=== PATIENT | female | born 1950 | race Caucasian/White ===

== ENCOUNTER 2017-04-27 06:21 | Day surgery (SDC) | payer BC, MEDICAID ==
[2017-04-27] MEDS ORDERED: Lactated Ringers 1,000 ML IV SCH (07:00)
[2017-04-27] MEDS ORDERED: Midazolam 1 MG/ML 2 ML SDV ONE (07:06)
[2017-04-27] MEDS ORDERED: Propofol 200 MG/20 ML SDV ONE ×2 (07:06→08:10)
[2017-04-27] MEDS ORDERED: fentaNYL 100 MCG/2 ML SDV ONE (07:06)
[2017-04-27 09:08] VITALS: BP 138/75
--- NOTE | 2017-04-27 13:46 | OR ---
DATE OF PROCEDURE: 04/27/2017 PREOPERATIVE DIAGNOSIS: Strong family history of colon cancer, father and grandfather. POSTOPERATIVE DIAGNOSIS: Unremarkable colonoscopy. Strong family history of colon cancer, father and grandfather. PROCEDURE: Colonoscopy to the cecum. ANESTHESIA: IV anesthesia with monitored anesthesia care. INDICATION: This 66-year-old white female is referred for a colonoscopy because of strong family history of colon cancer. Both her father and grandfather had colon cancer. She says her last colonoscopic exam was done 6 years ago. I think she should be having this every five years. I counseled her for a colonoscopy with possible biopsy and/or polypectomy including risks and alternatives, and she gave her informed consent to proceed. PROCEDURE IN DETAIL: The patient was placed in the left lateral decubitus position. IV anesthesia was administered by the Anesthesia Service. Time-out was held. A rectal exam was performed, which was unremarkable. The flexible video Olympus colonoscope was introduced through her anus, up her rectum, and out her colon all the way to the cecum. Once the cecum was reached, the scope was slowly withdrawn examining the mucosa throughout. No mucosal abnormalities were noted. The scope was retroflexed in the rectum with the distal rectum appearing unremarkable. The scope was straightened and removed. She tolerated the procedure well. Jessee Elena MD /[id number]
== END 2017-04-27 10:00 | disposition home or self-care (01) ==
LOC: JP.SDS 06:21
PROVIDERS: ATTEND Surgery
PROC: 0DJD8ZZ Inspection of Lower Intestinal Tract, Via Natural or Artificial Opening Endoscopic (ICD-10-PCS; principal; 2017-04-27)
DX: Z12.11 Encounter for screening for malignant neoplasm of colon (principal); Z80.0 Family history of malignant neoplasm of digestive organs
CPT/HCPCS: G0105; J2250; J2704; J3010; J7120

== ENCOUNTER 2022-07-04 05:56 | Day surgery (SDC) | payer MEDICARE, BC ==
[2022-07-04] MEDS ORDERED: Lactated Ringers 1,000 ML IV SCH (07:00)
[2022-07-04] MEDS ORDERED: Propofol 200 MG/20 ML SDV ONE (07:18)
[2022-07-04] MEDS ORDERED: Midazolam 1 MG/ML 2 ML SDV ONE (07:18)
[2022-07-04] MEDS ORDERED: fentaNYL 100 MCG/2 ML SDV ONE (07:18)
[2022-07-04 09:18] VITALS: BP 141/78; PULSE 60
== END 2022-07-04 09:36 | disposition home or self-care (01) ==
LOC: JP.SDS 05:56
PROVIDERS: ATTEND Family Medicine
DX: Z12.11 Encounter for screening for malignant neoplasm of colon (principal); D12.3 Benign neoplasm of transverse colon; E78.5 Hyperlipidemia, unspecified; K21.9 Gastro-esophageal reflux disease without esophagitis; Z90.710 Acquired absence of both cervix and uterus; Z80.0 Family history of malignant neoplasm of digestive organs; Z79.83 Long term (current) use of bisphosphonates; Z79.899 Other long term (current) drug therapy
CPT/HCPCS: 45380; 45385; J2250; J2704; J3010; J7120; 88305

== ENCOUNTER 2025-09-15 06:50 | Day surgery (SDC) | payer MEDICARE, BC ==
[2025-09-15] MEDS ORDERED: Propofol 200 MG/20 ML SDV ONE ×2 (07:17→07:45)
[2025-09-15] MEDS ORDERED: fentaNYL 100 MCG/2 ML SDV ONE (07:17)
[2025-09-15] MEDS: Lactated Ringers 1,000 ML IV SCH (07:46)
[2025-09-15 10:31] VITALS: BP 138/71; PULSE 76
== END 2025-09-15 10:25 | disposition home or self-care (01) ==
LOC: JP.SDS 06:50
PROVIDERS: ATTEND Family Medicine
DX: Z12.11 Encounter for screening for malignant neoplasm of colon (principal); Z79.82 Long term (current) use of aspirin; Z79.899 Other long term (current) drug therapy
CPT/HCPCS: G0121; J2704; J3010; J7120